=== PATIENT | female | born 1995 | race Caucasian/White ===

== ENCOUNTER → 2020-01-16 07:01 | Outpatient (CLI) | payer OTHER, SELFPAY ==
[2020-01-16 08:29] LABS: Add Manual Diff / Slide Review NO; Basophils Absolute Auto 0 /uL (0-100); Basophils Percent Auto 0.3 % (0-2); Eosinophils Absolute Auto 300 /uL (0-450); Eosinophils Percent Auto 3.7 % (2-4); Hematocrit 41.1 % (36-46); Hemoglobin 14.4 g/dL (12.0-16.0); Lymphocytes Absolute Auto 2400 /uL (1100-4500); Lymphocytes Percent Auto 32.8 % (25-40); Mean Corpuscular HGB Conc 34.9 % (30-36); Mean Corpuscular Hemoglobin 30.3 PG (26-34); Mean Corpuscular Volume 86.9 fL (80-100); Monocytes Absolute Auto 300 /uL (0-900); Monocytes Percent Auto 4.6 % (3-14); Neutrophils Absolute Auto 4300 /uL (1500-7000); Neutrophils Percent Auto 58.6 % (50-75); Platelet Count 244 X10^3/uL (150-400); Red Blood Cell Count 4.74 X10^6/uL (4.0-5.2); Red Cell Distribution Width 12.7 % (11.6-14.8); White Blood Cell Count 7.3 X10^3/uL (4.5-11.0)
[2020-01-16 08:56] LABS: Appearance Urine UA CLEAR; Bilirubin Urine UA NEGATIVE (NEGATIVE); Color Urine UA YELLOW; Glucose Urine UA NEGATIVE (Negative); Ketones Urine UA NEGATIVE (NEGATIVE); Leukocyte Esterase Urine UA NEGATIVE (NEGATIVE); Nitrite Urine UA NEGATIVE (Negative); Occult Blood Urine UA TRACE-LYSED (Negative); Protein Urine UA NEGATIVE (Negative); Urobilinogen Urine UA 0.2 E.U./dL (0.2)
[2020-01-16 09:11] LABS: pH Urine UA 6.5 (4.5-8.0)
[2020-01-16 10:46] LABS: HCG Quantitative /Beta subunit 72767 mIU/mL
[2020-01-16 17:24] LABS: Hepatitis B Surface Antigen NEGATIVE s/c (NEGATIVE); Rubella Antibody IgG 7.2 IU/mL (>15)
[2020-01-16 17:35] LABS: HIV 1 & 2 Ab/Ag 4th Gen Combo NEGATIVE (NEGATIVE); Hep C Virus Ab w/Reflex Quant NEGATIVE s/c (NEGATIVE)
[2020-01-17 07:44] LABS: RPR Screen Non Reactive (Non Reactive)
[2020-01-17 10:27] LABS: Varicella IgG Antibody 3372 index (Immune >165)
== END ==
PROVIDERS: PCP Family Medicine; Referring Provider Family Medicine; Visit Provider Family Medicine
DX: Z34.01 Encounter for supervision of normal first pregnancy, first trimester (principal)
CPT/HCPCS: 36415; 80055; 81003; 84702; 86787; 86803; 86850; 86900; 86901; 87086; 87389; 87491; 87591

== ENCOUNTER → 2020-01-30 07:33 | Outpatient (CLI) | payer OTHER, SELFPAY ==
--- NOTE | 2020-01-30 07:35 | DI.US.S_ITS ---
PROCEDURE: US OB <= 14 WEEKS FETUS INDICATIONS: INITIAL DATING ULTRASOUND OUTSIDE/PRIOR DATING DATA: Last menstrual period (LMP): Not available. LMP-based estimated date of delivery (RAVINDER): Not available . First dating scan (date and location): This study . Estimated date of delivery (RAVINDER) from first dating scan: 08/25/20, +/-5 days . TECHNIQUE: Real-time scanning was performed of the fetus and maternal pelvic organs, with image documentation. Endovaginal scanning was also performed to better visualize the fetus and maternal ovaries. COMPARISON: None. FINDINGS: Embryo: [place]-rump length of 3.4 cm correlates with a gestational age of 10 weeks 2 days with 162 beats per minute heart rate and maternal cervical length is 4.4 cm, normal. Current estimated gestational age is 10 weeks 2 days. Measurement variability in dating: +/- 4 weeks by LMP, +/- 7 days by mean sac diameter (use before 6 weeks gestation if crown-rump length not able to be measured), +/- 5 days by crown-rump length (up to 8 weeks 6 days gestation), +/- 7 days by crown-rump length (up to 13 weeks 6 days gestation). Maternal organs: Ovaries normal considering gestational status . Limited images through the kidneys demonstrate no hydronephrosis. IMPRESSION: Single early 1st trimester gestation, delivery date projected to be centered on 08/25/20. cardiac activity was observed. Dictated by: Scooby Keyes M.D. on 01/30/2020 at 12:57 Approved by: Scooby Keyes M.D. on 01/30/2020 at 12:58
== END ==
PROVIDERS: PCP Family Medicine; Referring Provider Family Medicine; Visit Provider Family Medicine
DX: Z34.91 Encounter for supervision of normal pregnancy, unspecified, first trimester (principal); Z3A.10 10 weeks gestation of pregnancy
CPT/HCPCS: 76801; 76817

== ENCOUNTER 2021-02-13 09:00 | Outpatient (RCR) | payer OTHER, SELFPAY ==
--- NOTE | 2020-10-29 15:27 | PT.OIE ---
Current Diagnoses Stress incontinence (female) (male) (10/29/20) Third degree perineal laceration during delivery, unspecified (10/29/20) Past Medical History (Last Updated 01/10/20 @ 16:50 by Yamila Love, BOB) Anxiety Chlamydia (~2016) Depression Eczema H/O colonoscopy (~2016) H/O wisdom tooth extraction (~2013) HSV-2 (herpes simplex virus 2) infection (~06/2019) Ovarian cyst Trauma Past Surgical History (Last Updated 01/10/20 @ 15:47 by Yamila Love, BOB) H/O colonoscopy (~2016) H/O wisdom tooth extraction (~2013) Visit Care Team Role Provider Type BUBBA Edwards Primary Care Provider Non-Staff Specialty: Family Practice Address: [address] [place] [address], [id number] Email: J CARLOS Denton Attending Provider Non-Staff Referring Provider Specialty: Obstetrics Address: [address] [place] [address] Email: Physical Therapy Initial Evaluation PT-OP-A Visit Information Start: 10/26/20 08:46 Freq: Status: Active Protocol: Document 10/29/20 13:00 AMB (Rec: 10/29/20 14:30 AMB [email or web address]) Out-Patient Physical Therapy Visit Information Visit Information Visit Type Initial Evaluation Visit Start Time 13:00 Visit Stop Time 13:45 Total Visit Minutes 45 Visit Number 1 PT-OP-B Current Condition Start: 10/26/20 08:46 Freq: Status: Active Protocol: Document 10/29/20 13:02 AMB (Rec: 10/29/20 13:49 AMB [id number]) Current Condition History of Current Condition Onset Date 9 weeks ago Current Complaints Painful bowel movements History of Current Condition Leaking urine strong cough sneeze, painful bowel movements even with stool softeners, denies leaking bowel, denies painful intercourse. 3.5hours pushing then vacuum assistance. Gestational hypertension- delivered at 39 weeks and 4 days. PT-OP-I Pelvic Floor Start: 10/26/20 08:46 Freq: Status: Active Protocol: Document 10/29/20 13:00 AMB (Rec: 10/29/20 14:30 AMB [email or web address]) Pelvic Floor Assessment Urine Pelvic Floor Surgery No Leakage Size Small Leakage Cause Cough,Sneeze Bowel Bowel Surgery No Bowel Symptoms Pain Other Bowel Symptoms taking miralax due to painful bowel movements Bowel Movement Frequency 2/day [place] Stool Chart Type 1-7 5 [place] Stool Chart Comments used to be more 3-4 before taking miralax Pelvic Clock Pelvic Clock 12-3 Guarding,Tenderness Pelvic Clock 3-6 Guarding,Tenderness Pelvic Clock 6-9 Guarding,Tenderness Pelvic Clock 9-12 Guarding,Tenderness Pelvic Clock Other Tenderness worst at perineum and R>L introitus, no pain/ tenderness with deeper palpation of levator ani. 2.5 finger widths below umbilicus , 3 above Prolapse Prolapse Comments no visible prolapse, pt did have difficulty bearing Contraction Ability Voluntary Contraction Weak Voluntary Relaxation Weak Manual Muscle Testing Left 1 Manual Muscle Testing Right 1 Manual Muscle Testing Anterior 1 Manual Muscle Testing Posterior 2 Muscle Endurance (Seconds) 3 Number of Quick Contractions In 10 3 Seconds PT-OP-T Assessment and Plan Start: 10/26/20 08:46 Freq: Status: Active Protocol: Document 10/29/20 13:00 AMB (Rec: 10/29/20 14:30 AMB [email or web address]) Physical Therapy Assessment Rehab Potential Rehabilitation Potential Good Evaluation Complexity Number of Personal Factors/Comorbidities 0 Number of Body Systems Impaired 1-2 Clinical Presentation at Evaluation Stable Impairments Impairments Pain,Strength Goals Two Impairment Urinary leaking Short Term Goal (STG) Soumya will be independent with a pelvic floor strengthening program so that she can tighten her pelvic floor for 10 seconds in standing. STG Duration 4 weeks Intermediate Goal (LTG) Soumya will be able to sneeze without leaking urine. LTG Duration 8 weeks One Impairment Pain with bowel movements Short Term Goal (STG) Soumya will be independent with scar tissue management to reduce her pelvic pain. STG Duration 4 weeks Intermediate Goal (LTG) Soumya will have a bowel movement without an increase in pelvic pain. LTG Duration 8 weeks Assessment Summary Assessment Soumya attends physical therapy with the main complaint of pain with bowel movements s/p 3rd degree tear with vaginal childbirth 9 weeks ago. She had significant pelvic floor weakness and tenderness over scar tissue R>L along with diastasis recti. She will benefit from instruction in a scar tissue management program as well as instruction in pelvic floor and deep core strengthening. Physical Therapy Plan Frequency and Duration Frequency of Treatment 1x/Week Duration of Treatment 10 weeks Plan of Care Start Date 10/29/20 Plan of Care End Date 01/07/21 Therapeutic Interventions Therapeutic Interventions Home Exercise Program,Manual Therapy,Neuromuscular Re- education,Self-Care/Home Management,Therapeutic Activities,Therapeutic Exercises Modalities Biofeedback,Cold Pack/Ice Massage,Electric Stimulation, Hot Packs Next Visit Focus/Plan Next Note Type Treatment Note Next Visit Plan Scar tissue work, follow up on pelvic floor strengthening - start in supine or seated
--- NOTE | 2020-10-29 15:31 | PT.OPPOC ---
Physical, Occupational & Speech Therapy At [facility] Current Diagnoses Stress incontinence (female) (male) (10/29/20) Third degree perineal laceration during delivery, unspecified (10/29/20) Visit Care Team Role Provider Type BUBBA Edwards Primary Care Provider Non-Staff Specialty: Family Practice Address: [address] [place] [address], [phone] Email: J CARLOS Denton Attending Provider Non-Staff Referring Provider Specialty: Obstetrics Address: [address] [place] [address], [id number] Email: Plan Of Care PT-OP-T Assessment and Plan Start: 10/26/20 08:46 Freq: Status: Active Protocol: Document 10/29/20 13:00 AMB (Rec: 10/29/20 14:30 AMB [email or web address]) Physical Therapy Assessment Rehab Potential Rehabilitation Potential Good Evaluation Complexity Number of Personal Factors/Comorbidities 0 Number of Body Systems Impaired 1-2 Clinical Presentation at Evaluation Stable Impairments Impairments Pain,Strength Goals Two Impairment Urinary leaking Short Term Goal (STG) Soumya will be independent with a pelvic floor strengthening program so that she can tighten her pelvic floor for 10 seconds in standing. STG Duration 4 weeks Care Home Goal (LTG) Soumya will be able to sneeze without leaking urine. LTG Duration 8 weeks One Impairment Pain with bowel movements Short Term Goal (STG) Soumya will be independent with scar tissue management to reduce her pelvic pain. STG Duration 4 weeks Care Home Goal (LTG) Soumya will have a bowel movement without an increase in pelvic pain. LTG Duration 8 weeks Assessment Summary Assessment Soumya attends physical therapy with the main complaint of pain with bowel movements s/p 3rd degree tear with vaginal childbirth 9 weeks ago. She had significant pelvic floor weakness and tenderness over scar tissue R>L along with diastasis recti. She will benefit from instruction in a scar tissue management program as well as instruction in pelvic prem and deep core strengthening. Physical Therapy Plan Frequency and Duration Frequency of Treatment 1x/Week Duration of Treatment 10 weeks Plan of Care Start Date 10/29/20 Plan of Care End Date 11/29/21 Therapeutic Interventions Therapeutic Interventions Home Exercise Program,Manual Therapy,Neuromuscular Re- education,Self-Care/Home Management,Therapeutic Activities,Therapeutic Exercises Modalities Biofeedback,Cold Pack/Ice Massage,Electric Stimulation, Hot Packs Next Visit Focus/Plan Next Note Type Treatment Note Next Visit Plan Scar tissue work, follow up on pelvic floor strengthening - start in supine or seated Plan of Care Dates Plan of Care Start Date 10/29/20 Plan of Care End Date 01/07/21 Electronically Signed by: Lexus Hart, PT 10/29/20 [id number] Please Sign and Return: I have reviewed this Plan of Care and certify that the skilled therapy services above are required to meet the patient?s needs. Physician Signature Date Printed Name and Credentials Clinical Instructor Signature Printed Name and Credentials
--- NOTE | 2020-11-12 15:23 | PT.OTN ---
Current Diagnoses Stress incontinence (female) (male) (11/12/20) Third degree perineal laceration during delivery, unspecified (11/12/20) Physical Therapy Treatment Note PT-OP-A Visit Information Start: 10/26/20 08:46 Freq: Status: Active Protocol: Document 11/12/20 09:00 AMB (Rec: 11/12/20 15:23 AMB [email or web address]) Out-Patient Physical Therapy Visit Information Visit Information Visit Type Treatment Note Visit Start Time 09:00 Visit Stop Time 09:45 Total Visit Minutes 45 Visit Number 2 PT-OP-B Current Condition Start: 10/26/20 08:46 Freq: Status: Active Protocol: Document 10/29/20 13:02 AMB (Rec: 10/29/20 13:49 AMB [id number]) Current Condition History of Current Condition Onset Date 9 weeks ago Current Complaints Painful bowel movements History of Current Condition Leaking urine strong cough sneeze, painful bowel movements even with stool softeners, denies leaking bowel, denies painful intercourse. 3.5hours pushing then vacuum assistance. Gestational hypertension- delivered at 39 weeks and 4 days. PT-OP-C Subjective Start: 10/26/20 08:46 Freq: Status: Active Protocol: Document 11/12/20 09:00 AMB (Rec: 11/12/20 15:23 AMB [email or web address]) OP-PT Subjective Patient Comments Patient Comments Soumya states things are about the same, she tried not using laxatives for one bowel movement and it was quite painful, she has not use the dilator yet. She has been working on the kegels. PT-OP-I Pelvic Floor Start: 10/26/20 08:46 Freq: Status: Active Protocol: Document 10/29/20 13:00 AMB (Rec: 10/29/20 14:30 AMB [email or web address]) Pelvic Floor Assessment Urine Pelvic Floor Surgery No Leakage Size Small Leakage Cause Cough,Sneeze Bowel Bowel Surgery No Bowel Symptoms Pain Other Bowel Symptoms taking miralax due to painful bowel movements Bowel Movement Frequency 2/day [place] Stool Chart Type 1-7 5 [place] Stool Chart Comments used to be more 3-4 before taking miralax Pelvic Clock Pelvic Clock 12-3 Guarding,Tenderness Pelvic Clock 3-6 Guarding,Tenderness Pelvic Clock 6-9 Guarding,Tenderness Pelvic Clock 9-12 Guarding,Tenderness Pelvic Clock Other Tenderness worst at perineum and R>L introitus, no pain/ tenderness with deeper palpation of levator ani. 2.5 finger widths below umbilicus , 3 above Prolapse Prolapse Comments no visible prolapse, pt did have difficulty bearing Contraction Ability Voluntary Contraction Weak Voluntary Relaxation Weak Manual Muscle Testing Left 1 Manual Muscle Testing Right 1 Manual Muscle Testing Anterior 1 Manual Muscle Testing Posterior 2 Muscle Endurance (Seconds) 3 Number of Quick Contractions In 10 3 Seconds PT-OP-Q Treatments Start: 10/26/20 08:46 Freq: Status: Active Protocol: Document 11/12/20 09:00 AMB (Rec: 11/12/20 15:23 AMB [email or web address]) Therapeutic Exercises Supine Exercises 1 Supine Exercise Name pelvic tilt Comments working on relaxing from pubic symphysis to coccyx Other Exercises 1 Other Exercise Name hip waggle in quadruped Manual Therapy Treatment Soft Tissue Mobilization perineum Mobilization Type Myofascial Release,Rolling, Strumming,Sustained Pressure Intensity/Depth Moderate Body Position Hooklying PT-OP-T Assessment and Plan Start: 10/26/20 08:46 Freq: Status: Active Protocol: Document 11/12/20 09:00 AMB (Rec: 11/12/20 15:23 AMB [email or web address]) Physical Therapy Assessment Goals Two Impairment Urinary leaking Short Term Goal (STG) Soumya will be independent with a pelvic floor strengthening program so that she can tighten her pelvic floor for 10 seconds in standing. STG Duration 4 weeks Translator Interpreter Goal (LTG) Soumya will be able to sneeze without leaking urine. LTG Duration 8 weeks One Impairment Pain with bowel movements Short Term Goal (STG) Soumya will be independent with scar tissue management to reduce her pelvic pain. STG Duration 4 weeks Res[place] Goal (LTG) Soumya will have a bowel movement without an increase in pelvic pain. LTG Duration 8 weeks Assessment Summary Assessment Soumya had continued pain with palpation of the perineum , continued to educate with work on breath, relaxation techniques, constipation management. Physical Therapy Plan Next Visit Focus/Plan Next Note Type Treatment Note Next Visit Plan Scar tissue work, follow up on pelvic floor strengthening - start in supine or seated
--- NOTE | 2020-11-19 15:01 | PT.OTN ---
Current Diagnoses Stress incontinence (female) (male) (11/19/20) Third degree perineal laceration during delivery, unspecified (11/19/20) Physical Therapy Treatment Note PT-OP-A Visit Information Start: 10/26/20 08:46 Freq: Status: Active Protocol: Document 11/19/20 09:00 AMB (Rec: 11/20/20 15:01 AMB [email or web address]) Out-Patient Physical Therapy Visit Information Visit Information Visit Type Treatment Note Visit Start Time 09:00 Visit Stop Time 09:45 Total Visit Minutes 45 Visit Number 3 PT-OP-B Current Condition Start: 10/26/20 08:46 Freq: Status: Active Protocol: Document 10/29/20 13:02 AMB (Rec: 10/29/20 13:49 AMB [id number]) Current Condition History of Current Condition Onset Date 9 weeks ago Current Complaints Painful bowel movements History of Current Condition Leaking urine strong cough sneeze, painful bowel movements even with stool softeners, denies leaking bowel, denies painful intercourse. 3.5hours pushing then vacuum assistance. Gestational hypertension- delivered at 39 weeks and 4 days. PT-OP-C Subjective Start: 10/26/20 08:46 Freq: Status: Active Protocol: Document 11/19/20 09:00 AMB (Rec: 11/20/20 15:01 AMB [email or web address]) OP-PT Subjective Patient Comments Patient Comments Pt reports she was a little sore after last visit in the evening, but not too bad. Exercises are going well. PT-OP-I Pelvic Floor Start: 10/26/20 08:46 Freq: Status: Active Protocol: Document 10/29/20 13:00 AMB (Rec: 10/29/20 14:30 AMB [email or web address]) Pelvic Floor Assessment Urine Pelvic Floor Surgery No Leakage Size Small Leakage Cause Cough,Sneeze Bowel Bowel Surgery No Bowel Symptoms Pain Other Bowel Symptoms taking miralax due to painful bowel movements Bowel Movement Frequency 2/day [place] Stool Chart Type 1-7 5 [place] Stool Chart Comments used to be more 3-4 before taking miralax Pelvic Clock Pelvic Clock 12-3 Guarding,Tenderness Pelvic Clock 3-6 Guarding,Tenderness Pelvic Clock 6-9 Guarding,Tenderness Pelvic Clock 9-12 Guarding,Tenderness Pelvic Clock Other Tenderness worst at perineum and R>L introitus, no pain/ tenderness with deeper palpation of levator ani. 2.5 finger widths below umbilicus , 3 above Prolapse Prolapse Comments no visible prolapse, pt did have difficulty bearing Contraction Ability Voluntary Contraction Weak Voluntary Relaxation Weak Manual Muscle Testing Left 1 Manual Muscle Testing Right 1 Manual Muscle Testing Anterior 1 Manual Muscle Testing Posterior 2 Muscle Endurance (Seconds) 3 Number of Quick Contractions In 10 3 Seconds PT-OP-Q Treatments Start: 10/26/20 08:46 Freq: Status: Active Protocol: Document 11/19/20 09:00 AMB (Rec: 11/20/20 15:01 AMB [email or web address]) Therapeutic Exercises Supine Exercises 4 Supine Exercise Name piriformis stretch Side bilateral Reps/Minutes 30x2 3 Supine Exercise Name hip flexor stretch Side bilateral Reps/Minutes 302 2 Supine Exercise Name happy baby Reps/Minutes x2 Manual Therapy Treatment Soft Tissue Mobilization perineum Mobilization Type Myofascial Release,Rolling, Strumming,Sustained Pressure Intensity/Depth Moderate Body Position Hooklying PT-OP-T Assessment and Plan Start: 10/26/20 08:46 Freq: Status: Active Protocol: Document 11/19/20 09:00 AMB (Rec: 11/20/20 15:01 AMB [email or web address]) Physical Therapy Assessment Assessment Summary Assessment Working closer in to rectum on scar tissue, pt continues to have urinary [place], so educated in breath for lnein and relaxing pelvic floor with stretching and with manual. Physical Therapy Plan Next Visit Focus/Plan Next Note Type Treatment Note Next Visit Plan Scar tissue work, follow up on pelvic floor strengthening - start in supine or seated
--- NOTE | 2020-12-03 11:30 | PT.OTN ---
Current Diagnoses Stress incontinence (female) (male) (12/03/20) Third degree perineal laceration during delivery, unspecified (12/03/20) Physical Therapy Treatment Note PT-OP-A Visit Information Start: 10/26/20 08:46 Freq: Status: Active Protocol: Document 12/03/20 09:00 AMB (Rec: 12/03/20 09:08 AMB [id number]) Out-Patient Physical Therapy Visit Information Visit Information Visit Type Treatment Note Visit Start Time 09:00 Visit Stop Time 09:45 Total Visit Minutes 45 Visit Number 4 PT-OP-B Current Condition Start: 10/26/20 08:46 Freq: Status: Active Protocol: Document 10/29/20 13:02 AMB (Rec: 10/29/20 13:49 AMB [id number]) Current Condition History of Current Condition Onset Date 9 weeks ago Current Complaints Painful bowel movements History of Current Condition Leaking urine strong cough sneeze, painful bowel movements even with stool softeners, denies leaking bowel, denies painful intercourse. 3.5hours pushing then vacuum assistance. Gestational hypertension- delivered at 39 weeks and 4 days. PT-OP-C Subjective Start: 10/26/20 08:46 Freq: Status: Active Protocol: Document 12/03/20 09:00 AMB (Rec: 12/03/20 09:08 AMB [id number]) OP-PT Subjective Patient Comments Patient Comments Pt was not sore after last PT visit, but continues to have pain with bowel movements. PT-OP-I Pelvic Floor Start: 10/26/20 08:46 Freq: Status: Active Protocol: Document 10/29/20 13:00 AMB (Rec: 10/29/20 14:30 AMB [email or web address]) Pelvic Floor Assessment Urine Pelvic Floor Surgery No Leakage Size Small Leakage Cause Cough,Sneeze Bowel Bowel Surgery No Bowel Symptoms Pain Other Bowel Symptoms taking miralax due to painful bowel movements Bowel Movement Frequency 2/day [place] Stool Chart Type 1-7 5 [place] Stool Chart Comments used to be more 3-4 before taking miralax Pelvic Clock Pelvic Clock 12-3 Guarding,Tenderness Pelvic Clock 3-6 Guarding,Tenderness Pelvic Clock 6-9 Guarding,Tenderness Pelvic Clock 9-12 Guarding,Tenderness Pelvic Clock Other Tenderness worst at perineum and R>L introitus, no pain/ tenderness with deeper palpation of levator ani. 2.5 finger widths below umbilicus , 3 above Prolapse Prolapse Comments no visible prolapse, pt did have difficulty bearing Contraction Ability Voluntary Contraction Weak Voluntary Relaxation Weak Manual Muscle Testing Left 1 Manual Muscle Testing Right 1 Manual Muscle Testing Anterior 1 Manual Muscle Testing Posterior 2 Muscle Endurance (Seconds) 3 Number of Quick Contractions In 10 3 Seconds PT-OP-Q Treatments Start: 10/26/20 08:46 Freq: Status: Active Protocol: Document 12/03/20 11:28 AMB (Rec: 12/03/20 11:30 AMB [email or web address]) Manual Therapy Treatment Soft Tissue Mobilization rectum Body Location rectal Mobilization Type Myofascial Release,Sustained Pressure Intensity/Depth Moderate Body Position Supine PT-OP-T Assessment and Plan Start: 10/26/20 08:46 Freq: Status: Active Protocol: Document 12/03/20 11:28 AMB (Rec: 12/03/20 11:30 AMB [email or web address]) Physical Therapy Assessment Assessment Summary Assessment Scar tissue stretching at rectum was more painful, pt does feel like sx are improving, no longer crying out in pain with BM, but continues to have pain, and pain with stretching during appt. Physical Therapy Plan Next Visit Focus/Plan Next Note Type Treatment Note Next Visit Plan Scar tissue work, follow up on pelvic floor strengthening - start in supine or seated
--- NOTE | 2020-12-10 11:00 | PT.OTN ---
Current Diagnoses Stress incontinence (female) (male) (12/10/20) Third degree perineal laceration during delivery, unspecified (12/10/20) Physical Therapy Treatment Note PT-OP-A Visit Information Start: 10/26/20 08:46 Freq: Status: Active Protocol: Document 12/10/20 08:15 AMB (Rec: 12/10/20 08:39 AMB [id number]) Out-Patient Physical Therapy Visit Information Visit Information Visit Type Treatment Note Visit Start Time 08:15 Visit Stop Time 09:00 Total Visit Minutes 45 Visit Number 5 PT-OP-B Current Condition Start: 10/26/20 08:46 Freq: Status: Active Protocol: Document 10/29/20 13:02 AMB (Rec: 10/29/20 13:49 AMB [id number]) Current Condition History of Current Condition Onset Date 9 weeks ago Current Complaints Painful bowel movements History of Current Condition Leaking urine strong cough sneeze, painful bowel movements even with stool softeners, denies leaking bowel, denies painful intercourse. 3.5hours pushing then vacuum assistance. Gestational hypertension- delivered at 39 weeks and 4 days. PT-OP-C Subjective Start: 10/26/20 08:46 Freq: Status: Active Protocol: Document 12/10/20 08:15 AMB (Rec: 12/10/20 08:39 AMB [id number]) OP-PT Subjective Patient Comments Patient Comments Pt was quite sore after last visit. Bowel movements were painful for two days afterwards. PT-OP-I Pelvic Floor Start: 10/26/20 08:46 Freq: Status: Active Protocol: Document 10/29/20 13:00 AMB (Rec: 10/29/20 14:30 AMB [email or web address]) Pelvic Floor Assessment Urine Pelvic Floor Surgery No Leakage Size Small Leakage Cause Cough,Sneeze Bowel Bowel Surgery No Bowel Symptoms Pain Other Bowel Symptoms taking miralax due to painful bowel movements Bowel Movement Frequency 2/day [place] Stool Chart Type 1-7 5 [place] Stool Chart Comments used to be more 3-4 before taking miralax Pelvic Clock Pelvic Clock 12-3 Guarding,Tenderness Pelvic Clock 3-6 Guarding,Tenderness Pelvic Clock 6-9 Guarding,Tenderness Pelvic Clock 9-12 Guarding,Tenderness Pelvic Clock Other Tenderness worst at perineum and R>L introitus, no pain/ tenderness with deeper palpation of levator ani. 2.5 finger widths below umbilicus , 3 above Prolapse Prolapse Comments no visible prolapse, pt did have difficulty bearing Contraction Ability Voluntary Contraction Weak Voluntary Relaxation Weak Manual Muscle Testing Left 1 Manual Muscle Testing Right 1 Manual Muscle Testing Anterior 1 Manual Muscle Testing Posterior 2 Muscle Endurance (Seconds) 3 Number of Quick Contractions In 10 3 Seconds PT-OP-Q Treatments Start: 10/26/20 08:46 Freq: Status: Active Protocol: Document 12/10/20 10:52 AMB (Rec: 12/10/20 10:59 AMB [email or web address]) Therapeutic Exercises Supine Exercises 1 Supine Exercise Name roll in Reps/Minutes 2x10 Manual Therapy Treatment Soft Tissue Mobilization rectum Body Location rectal Mobilization Type Myofascial Release,Sustained Pressure Intensity/Depth Moderate Body Position Supine PT-OP-T Assessment and Plan Start: 10/26/20 08:46 Freq: Status: Active Protocol: Document 12/10/20 10:52 AMB (Rec: 12/10/20 10:59 AMB [email or web address]) Physical Therapy Assessment Goals Two Impairment Urinary leaking Short Term Goal (STG) Soumya will be independent with a pelvic floor strengthening program so that she can tighten her pelvic floor for 10 seconds in standing. STG Duration 4 weeks Compliance Officer Goal (LTG) Soumya will be able to sneeze without leaking urine. LTG Duration 8 weeks One Impairment Pain with bowel movements Short Term Goal (STG) Soumya will be independent with scar tissue management to reduce her pelvic pain. STG Duration 4 weeks Long-Term Goal (LTG) Soumya will have a bowel movement without an increase in pelvic pain. LTG Duration 8 weeks Assessment Summary Assessment Pt with increased pain on R side of anus. Less manual work today so that pt isn't hopefully as sore. Strengthening will need to continue, being aware of her hip pain. Physical Therapy Plan Next Visit Focus/Plan Next Note Type Treatment Note Next Visit Plan Scar tissue work, follow up on pelvic floor strengthening - start in supine or seated
--- NOTE | 2020-12-17 10:25 | PT.OTN ---
Current Diagnoses Stress incontinence (female) (male) (12/17/20) Third degree perineal laceration during delivery, unspecified (12/17/20) Physical Therapy Treatment Note PT-OP-A Visit Information Start: 10/26/20 08:46 Freq: Status: Active Protocol: Document 12/17/20 09:16 AMB (Rec: 12/17/20 09:37 AMB [id number]) Out-Patient Physical Therapy Visit Information Visit Information Visit Type Treatment Note Visit Start Time 09:00 Visit Stop Time 09:45 Total Visit Minutes 45 Visit Number 6 PT-OP-B Current Condition Start: 10/26/20 08:46 Freq: Status: Active Protocol: Document 10/29/20 13:02 AMB (Rec: 10/29/20 13:49 AMB [id number]) Current Condition History of Current Condition Onset Date 9 weeks ago Current Complaints Painful bowel movements History of Current Condition Leaking urine strong cough sneeze, painful bowel movements even with stool softeners, denies leaking bowel, denies painful intercourse. 3.5hours pushing then vacuum assistance. Gestational hypertension- delivered at 39 weeks and 4 days. PT-OP-C Subjective Start: 10/26/20 08:46 Freq: Status: Active Protocol: Document 12/17/20 09:16 AMB (Rec: 12/17/20 09:37 AMB [id number]) OP-PT Subjective Patient Comments Patient Comments Pt better after last visit, not as painful. PT-OP-I Pelvic Floor Start: 10/26/20 08:46 Freq: Status: Active Protocol: Document 10/29/20 13:00 AMB (Rec: 10/29/20 14:30 AMB [email or web address]) Pelvic Floor Assessment Urine Pelvic Floor Surgery No Leakage Size Small Leakage Cause Cough,Sneeze Bowel Bowel Surgery No Bowel Symptoms Pain Other Bowel Symptoms taking miralax due to painful bowel movements Bowel Movement Frequency 2/day [place] Stool Chart Type 1-7 5 [place] Stool Chart Comments used to be more 3-4 before taking miralax Pelvic Clock Pelvic Clock 12-3 Guarding,Tenderness Pelvic Clock 3-6 Guarding,Tenderness Pelvic Clock 6-9 Guarding,Tenderness Pelvic Clock 9-12 Guarding,Tenderness Pelvic Clock Other Tenderness worst at perineum and R>L introitus, no pain/ tenderness with deeper palpation of levator ani. 2.5 finger widths below umbilicus , 3 above Prolapse Prolapse Comments no visible prolapse, pt did have difficulty bearing Contraction Ability Voluntary Contraction Weak Voluntary Relaxation Weak Manual Muscle Testing Left 1 Manual Muscle Testing Right 1 Manual Muscle Testing Anterior 1 Manual Muscle Testing Posterior 2 Muscle Endurance (Seconds) 3 Number of Quick Contractions In 10 3 Seconds PT-OP-Q Treatments Start: 10/26/20 08:46 Freq: Status: Active Protocol: Document 12/17/20 10:22 AMB (Rec: 12/17/20 10:25 AMB [email or web address]) Therapeutic Exercises Sitting Exercises ROLL OUT Resistance #2 T BAND Reps/Minutes 3X10 Manual Therapy Treatment Soft Tissue Mobilization rectum Body Location rectal Mobilization Type Myofascial Release,Sustained Pressure Intensity/Depth Moderate Body Position Supine Comments worked more on the right PT-OP-T Assessment and Plan Start: 10/26/20 08:46 Freq: Status: Active Protocol: Document 12/17/20 10:22 AMB (Rec: 12/17/20 10:25 AMB [email or web address]) Physical Therapy Assessment Assessment Summary Assessment Pt noticing improvement with pelvic floor exercises for leaking, continues to have pain with bowel movements but that is improving. Physical Therapy Plan Next Visit Focus/Plan Next Note Type Treatment Note Next Visit Plan Scar tissue work, follow up on pelvic floor strengthening - start in supine or seated
--- NOTE | 2021-01-07 16:17 | PT.OPPOC ---
Physical, Occupational & Speech Therapy At [facility] Current Diagnoses Stress incontinence (female) (male) (01/07/21) Third degree perineal laceration during delivery, unspecified (01/07/21) Visit Care Team Role Provider Type BUBBA Edwards Primary Care Provider Non-Staff Specialty: Family Practice Address: [address] [place] [address], [id number] Email: J CARLOS Denton Attending Provider Non-Staff Referring Provider Specialty: Obstetrics Address: [address] [place] [address], [id number] Email: Plan Of Care PT-OP-T Assessment and Plan Start: 10/26/20 08:46 Freq: Status: Active Protocol: Document 01/07/21 09:47 AMB (Rec: 01/07/21 10:24 AMB [id number]) Physical Therapy Assessment Goals Two Impairment Urinary leaking Short Term Goal (STG) Soumya will be independent with a pelvic floor strengthening program so that she can tighten her pelvic floor for 10 seconds in standing. STG Duration PROGRESS MADE Radio Engineering Teacher Goal (LTG) Soumya will be able to sneeze without leaking urine. LTG Duration 8 weeks One Impairment Pain with bowel movements Short Term Goal (STG) Soumya will be independent with scar tissue management to reduce her pelvic pain. STG Duration 4 weeks Penitentiary Goal (LTG) Soumya will have a bowel movement without an increase in pelvic pain. LTG Duration PROGRESS MADE Assessment Summary Assessment Kathy has made good progress with physical therapy so far. She has been able to have bowel movements without pain but continues to need to use stool softeners for this to happen. She is improving her pelvic floor strength and that is coming along quite well. She will benefit from a short bout of continued physical therapy to continue the progress she has already made. Physical Therapy Plan Frequency and Duration Frequency of Treatment 1x/Week Duration of Treatment 8 weeks Plan of Care Start Date 01/07/21 Plan of Care End Date 03/04/21 Therapeutic Interventions Therapeutic Interventions Home Exercise Program,Manual Therapy,Neuromuscular Re- education,Self-Care/Home Management,Therapeutic Activities,Therapeutic Exercises Modalities Biofeedback,Cold Pack/Ice Massage,Electric Stimulation, Hot Packs Next Visit Focus/Plan Next Note Type Treatment Note Next Visit Plan Scar tissue work, follow up on pelvic floor strengthening - start in supine or seated Plan of Care Dates Plan of Care Start Date 01/07/21 Plan of Care End Date 03/04/21 Electronically Signed by: Lexus Hart, PT 01/09/21 [id number] Please Sign and Return: I have reviewed this Plan of Care and certify that the skilled therapy services above are required to meet the patient?s needs. Physician Signature Date Printed Name and Credentials Clinical Instructor Signature Printed Name and Credentials
--- NOTE | 2021-01-07 16:17 | PT.OTN ---
Current Diagnoses Stress incontinence (female) (male) (01/07/21) Third degree perineal laceration during delivery, unspecified (01/07/21) Physical Therapy Treatment Note PT-OP-A Visit Information Start: 10/26/20 08:46 Freq: Status: Active Protocol: Document 01/07/21 09:47 AMB (Rec: 01/07/21 10:24 AMB [id number]) Out-Patient Physical Therapy Visit Information Visit Information Visit Type Treatment Note PT-OP-B Current Condition Start: 10/26/20 08:46 Freq: Status: Active Protocol: Document 10/29/20 13:02 AMB (Rec: 10/29/20 13:49 AMB [id number]) Current Condition History of Current Condition Onset Date 9 weeks ago Current Complaints Painful bowel movements History of Current Condition Leaking urine strong cough sneeze, painful bowel movements even with stool softeners, denies leaking bowel, denies painful intercourse. 3.5hours pushing then vacuum assistance. Gestational hypertension- delivered at 39 weeks and 4 days. PT-OP-C Subjective Start: 10/26/20 08:46 Freq: Status: Active Protocol: Document 01/07/21 09:47 AMB (Rec: 01/07/21 10:24 AMB [id number]) OP-PT Subjective Patient Comments Patient Comments Urgency still a thing, bowel movements are less painful now , still painful if not using miralax. PT-OP-I Pelvic Floor Start: 10/26/20 08:46 Freq: Status: Active Protocol: Document 10/29/20 13:00 AMB (Rec: 10/29/20 14:30 AMB [email or web address]) Pelvic Floor Assessment Urine Pelvic Floor Surgery No Leakage Size Small Leakage Cause Cough,Sneeze Bowel Bowel Surgery No Bowel Symptoms Pain Other Bowel Symptoms taking miralax due to painful bowel movements Bowel Movement Frequency 2/day [place] Stool Chart Type 1-7 5 [place] Stool Chart Comments used to be more 3-4 before taking miralax Pelvic Clock Pelvic Clock 12-3 Guarding,Tenderness Pelvic Clock 3-6 Guarding,Tenderness Pelvic Clock 6-9 Guarding,Tenderness Pelvic Clock 9-12 Guarding,Tenderness Pelvic Clock Other Tenderness worst at perineum and R>L introitus, no pain/ tenderness with deeper palpation of levator ani. 2.5 finger widths below umbilicus , 3 above Prolapse Prolapse Comments no visible prolapse, pt did have difficulty bearing Contraction Ability Voluntary Contraction Weak Voluntary Relaxation Weak Manual Muscle Testing Left 1 Manual Muscle Testing Right 1 Manual Muscle Testing Anterior 1 Manual Muscle Testing Posterior 2 Muscle Endurance (Seconds) 3 Number of Quick Contractions In 10 3 Seconds PT-OP-Q Treatments Start: 10/26/20 08:46 Freq: Status: Active Protocol: Document 01/07/21 10:30 AMB (Rec: 01/07/21 10:31 AMB [id number]) Therapeutic Exercises Standing Exercises 1 Standing Exercise Name contract pelvic floor with sit to stand Reps/Minutes 10 Comments fatigues Manual Therapy Treatment Soft Tissue Mobilization rectum Body Location rectal Mobilization Type Myofascial Release,Sustained Pressure Intensity/Depth Moderate Body Position Supine Comments worked more on the right perineum Mobilization Type Myofascial Release,Rolling, Strumming,Sustained Pressure Intensity/Depth Moderate Body Position Hooklying PT-OP-T Assessment and Plan Start: 10/26/20 08:46 Freq: Status: Active Protocol: Document 01/07/21 09:47 AMB (Rec: 01/07/21 10:24 AMB [id number]) Physical Therapy Assessment Goals Two Impairment Urinary leaking Short Term Goal (STG) Soumya will be independent with a pelvic floor strengthening program so that she can tighten her pelvic floor for 10 seconds in standing. STG Duration PROGRESS MADE Soaker Hides Goal (LTG) Soumya will be able to sneeze without leaking urine. LTG Duration 8 weeks One Impairment Pain with bowel movements Short Term Goal (STG) Soumya will be independent with scar tissue management to reduce her pelvic pain. STG Duration 4 weeks Skilled Nursing Goal (LTG) Soumya will have a bowel movement without an increase in pelvic pain. LTG Duration PROGRESS MADE Assessment Summary Assessment Kathy has made good progress with physical therapy so far. She has been able to have bowel movements without pain but continues to need to use stool softeners for this to happen. She is improving her pelvic floor strength and that is coming along quite well. She will benefit from a short bout of continued physical therapy to continue the progress she has already made. Physical Therapy Plan Frequency and Duration Frequency of Treatment 1x/Week Duration of Treatment 8 weeks Plan of Care Start Date 01/07/21 Plan of Care End Date 03/04/21 Therapeutic Interventions Therapeutic Interventions Home Exercise Program,Manual Therapy,Neuromuscular Re- education,Self-Care/Home Management,Therapeutic Activities,Therapeutic Exercises Modalities Biofeedback,Cold Pack/Ice Massage,Electric Stimulation, Hot Packs Next Visit Focus/Plan Next Note Type Treatment Note Next Visit Plan Scar tissue work, follow up on pelvic floor strengthening - start in supine or seated
--- NOTE | 2021-01-14 09:44 | PT.OTN ---
Current Diagnoses Stress incontinence (female) (male) (01/14/21) Third degree perineal laceration during delivery, unspecified (01/14/21) Physical Therapy Treatment Note PT-OP-A Visit Information Start: 10/26/20 08:46 Freq: Status: Active Protocol: Document 01/14/21 09:03 AMB (Rec: 01/14/21 09:44 AMB [id number]) Out-Patient Physical Therapy Visit Information Visit Information Visit Type Treatment Note Visit Start Time 09:00 Visit Stop Time 09:45 Total Visit Minutes 45 Visit Number 8 PT-OP-B Current Condition Start: 10/26/20 08:46 Freq: Status: Active Protocol: Document 10/29/20 13:02 AMB (Rec: 10/29/20 13:49 AMB [id number]) Current Condition History of Current Condition Onset Date 9 weeks ago Current Complaints Painful bowel movements History of Current Condition Leaking urine strong cough sneeze, painful bowel movements even with stool softeners, denies leaking bowel, denies painful intercourse. 3.5hours pushing then vacuum assistance. Gestational hypertension- delivered at 39 weeks and 4 days. PT-OP-C Subjective Start: 10/26/20 08:46 Freq: Status: Active Protocol: Document 01/14/21 09:03 AMB (Rec: 01/14/21 09:44 AMB [id number]) OP-PT Subjective Patient Comments Patient Comments Pain continues but not as severe, working on kegels, still challenging in standing but improving. PT-OP-I Pelvic Floor Start: 10/26/20 08:46 Freq: Status: Active Protocol: Document 10/29/20 13:00 AMB (Rec: 10/29/20 14:30 AMB [email or web address]) Pelvic Floor Assessment Urine Pelvic Floor Surgery No Leakage Size Small Leakage Cause Cough,Sneeze Bowel Bowel Surgery No Bowel Symptoms Pain Other Bowel Symptoms taking miralax due to painful bowel movements Bowel Movement Frequency 2/day [place] Stool Chart Type 1-7 5 [place] Stool Chart Comments used to be more 3-4 before taking miralax Pelvic Clock Pelvic Clock 12-3 Guarding,Tenderness Pelvic Clock 3-6 Guarding,Tenderness Pelvic Clock 6-9 Guarding,Tenderness Pelvic Clock 9-12 Guarding,Tenderness Pelvic Clock Other Tenderness worst at perineum and R>L introitus, no pain/ tenderness with deeper palpation of levator ani. 2.5 finger widths below umbilicus , 3 above Prolapse Prolapse Comments no visible prolapse, pt did have difficulty bearing Contraction Ability Voluntary Contraction Weak Voluntary Relaxation Weak Manual Muscle Testing Left 1 Manual Muscle Testing Right 1 Manual Muscle Testing Anterior 1 Manual Muscle Testing Posterior 2 Muscle Endurance (Seconds) 3 Number of Quick Contractions In 10 3 Seconds PT-OP-Q Treatments Start: 10/26/20 08:46 Freq: Status: Active Protocol: Document 01/14/21 09:03 AMB (Rec: 01/14/21 09:44 AMB [id number]) Manual Therapy Treatment Soft Tissue Mobilization rectum Body Location rectal Mobilization Type Myofascial Release,Sustained Pressure Intensity/Depth Moderate Body Position Supine Comments worked more posteriorly PT-OP-T Assessment and Plan Start: 10/26/20 08:46 Freq: Status: Active Protocol: Document 01/14/21 09:03 AMB (Rec: 01/14/21 09:44 AMB [id number]) Physical Therapy Assessment Goals Two Impairment Urinary leaking Short Term Goal (STG) Soumya will be independent with a pelvic floor strengthening program so that she can tighten her pelvic floor for 10 seconds in standing. STG Duration PROGRESS MADE Certified Home Health Aide Goal (LTG) Soumya will be able to sneeze without leaking urine. LTG Duration 8 weeks One Impairment Pain with bowel movements Short Term Goal (STG) Soumya will be independent with scar tissue management to reduce her pelvic pain. STG Duration 4 weeks Certified Home Health Aide Goal (LTG) Soumya will have a bowel movement without an increase in pelvic pain. LTG Duration PROGRESS MADE Assessment Summary Assessment Soumya is doing better, but continues to have pain with bowel movements, but not as severe. [place] stool scale between 4 and 5. Physical Therapy Plan Next Visit Focus/Plan Next Note Type Treatment Note Next Visit Plan Scar tissue work, follow up on pelvic floor strengthening - progress to standing and moving
--- NOTE | 2021-02-13 14:58 | PT.OTN ---
Current Diagnoses Stress incontinence (female) (male) (02/13/21) Third degree perineal laceration during delivery, unspecified (02/13/21) Physical Therapy Treatment Note PT-OP-A Visit Information Start: 10/26/20 08:46 Freq: Status: Active Protocol: Document 02/13/21 09:00 AMB (Rec: 02/13/21 14:58 AMB [id number]) Out-Patient Physical Therapy Visit Information Visit Information Visit Type Discharge Summary Visit Start Time 09:00 Visit Stop Time 09:45 Total Visit Minutes 45 Visit Number 9 PT-OP-B Current Condition Start: 10/26/20 08:46 Freq: Status: Active Protocol: Document 10/29/20 13:02 AMB (Rec: 10/29/20 13:49 AMB [id number]) Current Condition History of Current Condition Onset Date 9 weeks ago Current Complaints Painful bowel movements History of Current Condition Leaking urine strong cough sneeze, painful bowel movements even with stool softeners, denies leaking bowel, denies painful intercourse. 3.5hours pushing then vacuum assistance. Gestational hypertension- delivered at 39 weeks and 4 days. PT-OP-C Subjective Start: 10/26/20 08:46 Freq: Status: Active Protocol: Document 02/13/21 09:00 AMB (Rec: 02/13/21 14:58 AMB [id number]) OP-PT Subjective Patient Comments Patient Comments Soumya is having more pain. She hasn't been able to make it to PT because her mom was hospitalized and then snow/ice issues. she is also concerned about intermittent blood in her stool, wondering about internal hemerhoiids. PT-OP-I Pelvic Floor Start: 10/26/20 08:46 Freq: Status: Active Protocol: Document 10/29/20 13:00 AMB (Rec: 10/29/20 14:30 AMB [email or web address]) Pelvic Floor Assessment Urine Pelvic Floor Surgery No Leakage Size Small Leakage Cause Cough,Sneeze Bowel Bowel Surgery No Bowel Symptoms Pain Other Bowel Symptoms taking miralax due to painful bowel movements Bowel Movement Frequency 2/day [place] Stool Chart Type 1-7 5 [place] Stool Chart Comments used to be more 3-4 before taking miralax Pelvic Clock Pelvic Clock 12-3 Guarding,Tenderness Pelvic Clock 3-6 Guarding,Tenderness Pelvic Clock 6-9 Guarding,Tenderness Pelvic Clock 9-12 Guarding,Tenderness Pelvic Clock Other Tenderness worst at perineum and R>L introitus, no pain/ tenderness with deeper palpation of levator ani. 2.5 finger widths below umbilicus , 3 above Prolapse Prolapse Comments no visible prolapse, pt did have difficulty bearing Contraction Ability Voluntary Contraction Weak Voluntary Relaxation Weak Manual Muscle Testing Left 1 Manual Muscle Testing Right 1 Manual Muscle Testing Anterior 1 Manual Muscle Testing Posterior 2 Muscle Endurance (Seconds) 3 Number of Quick Contractions In 10 3 Seconds PT-OP-Q Treatments Start: 10/26/20 08:46 Freq: Status: Active Protocol: Document 02/13/21 09:00 AMB (Rec: 02/13/21 14:58 AMB [id number]) Manual Therapy Treatment Soft Tissue Mobilization rectum Body Location rectal Mobilization Type Myofascial Release,Sustained Pressure Intensity/Depth Moderate Body Position Supine PT-OP-T Assessment and Plan Start: 10/26/20 08:46 Freq: Status: Active Protocol: Document 02/13/21 09:00 AMB (Rec: 02/13/21 14:58 AMB [id number]) Physical Therapy Assessment Goals Two Impairment Urinary leaking Short Term Goal (STG) Soumya will be independent with a pelvic floor strengthening program so that she can tighten her pelvic floor for 10 seconds in standing. STG Duration MET Camp Nurse Goal (LTG) Soumya will be able to sneeze without leaking urine. LTG Duration MET One Impairment Pain with bowel movements Short Term Goal (STG) Soumya will be independent with scar tissue management to reduce her pelvic pain. STG Duration MET Fdc Goal (LTG) Soumya will have a bowel movement without an increase in pelvic pain. LTG Duration PROGRESS MADE Assessment Summary Assessment Encouraged Soumya to talk toher PCP regarding the blood in her stool, hemerhoidd concerns. Could consider pelvic wand. Pt is moving to [place], so could consider further pelvic floor therapy there. She reports stress incontinence is better unless she has a big coughing fit. Physical Therapy Plan Discharge Physical Therapy Discharge Comments Pt is moving out of state
== END 2021-03-12 08:35 ==
LOC: PHYS 09:00
PROVIDERS: PCP Registered Nurse; Referring Provider Nurse Practitioner Obstetrics & Gynecology; Visit Provider Nurse Practitioner Obstetrics & Gynecology
DX: O70.20 Third degree perineal laceration during delivery, unspecified (principal); N39.3 Stress incontinence (female) (male)
CPT/HCPCS: 97110; 97140; 97161